=== PATIENT | female | born 2000 | race Caucasian/White ===

== ENCOUNTER 2024-01-17 22:54 | Emergency (ER) | payer BC, SELFPAY ==
--- NOTE | ~2024-01-17 | CT_ITS ---
EXAMINATION: CT brain wo con DATE: 01/18/2024 03:35 INDICATION: Descending weakness. TECHNIQUE: Computed tomography (CT) of the head was performed without intravenous contrast. The mA wa s adjusted according to patient size. Iterative reconstruction technique was employed. The dose-lengt h product was 605.33 mGy-cm. COMPARISON: None FINDINGS: There is no intracranial hemorrhage, acute infarction, or abnormal intracranial mass lesion . The ventricles are normal in size. Cavum septum pellucidum and vergae are noted. The paranasal sinu ses are clear. The mastoid air cells are normal. IMPRESSION: 1. Normal brain. Reviewed, dictated and finalized at location A. IMPRESSION: 1. Normal brain.
--- NOTE | ~2024-01-17 | CT_ITS ---
EXAMINATION: CT cervical spine wo con DATE: 01/18/2024 03:35 INDICATION: Neck laxity. Descending weakness. TECHNIQUE: Computed tomography (CT) of the cervical spine was performed without intravenous contrast. Automated exposure control and iterative reconstruction technique were employed. The dose-length pro duct was 107.57 mGy-cm. COMPARISON: None FINDINGS: There is kyphosis of cervical spine. Vertebral body heights are normal. Intervertebral disc heights are normal. At C7-T1, there is moderate bilateral facet joint osteoarthritis. No neural fora keshia stenosis. There is mild central canal stenosis at C5-C6 and C6-C7. IMPRESSION: 1. Mild cervical spondylosis. Reviewed, dictated and finalized at location A.
[2024-01-17 22:55] VITALS: BP 136/98; PULSE 115; RESP 18; TEMP 36.6; O2SAT 100
[2024-01-18] VITALS (23 sets, daily range): BP systolic 105–122; BP diastolic 66–88; PULSE 62–92; RESP 17–20; O2SAT 95–100
--- NOTE | 2024-01-18 03:10 | ED.GENADULT ---
HPI - General Adult General Chief complaint: Unspecified Stated complaint: weakness Time Seen by Provider: 01/18/24 02:44 History of Present Illness HPI narrative: 23-year-old otherwise healthy female presenting to the emergency room with a chief complaint of instability or neck, spasm in her neck and blurry vision. Patient states that she receive a flu shot earlier today at [employer] and thinks that this could be reaction to that. About a week ago she was having a viral illness with some abdominal pain, loose stools and subjective fevers but this was self-limited. 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 Presently she is endorsing difficulty keeping her head level and cannot raise it above her neck without causing significant instability. Denies any trauma, headache, nausea, vomiting, chest pain, shortness a breath. No abdominal pain, no diarrhea constipation or urinary complaints. Has never had anything like this happen to in the past. Related Data Allergies Allergy/AdvReac Type Severity Reaction Status Date / Time No Known Allergies Allergy Verified 12/18/23 15:24 Review of Systems Review of Systems: As reviewed above in HPI [facility] Past Medical History Medical History Anxiety Depression Family History Family History Mother Depression Sibling Asthma Grandparent Breast cancer Grandparent Cerebrovascular accident Social History Social History Smoking status: Never smoker Exam Narrative: GENERAL: [Well-appearing, well-nourished, and in no acute distress.] HEAD: [Normocephalic, atraumatic.] Patient has bobbing head motions when trying to sit upright. She is not able to keep her head steady. No cervical spinal tenderness or deformity. No step-offs. No lymphadenopathy EYES: Bilateral ptosis, pupils are equal reactive to light, extraocular movements are full. No nystagmus. ENT: Nares clear, no rhinorrhea or epistaxis. Mucous membranes moist. NECK: Supple. CHEST: [Clear to auscultation. No respiratory distress.] HEART: [Regular rate and rhythm]. No murmur heard. [Normal peripheral pulses.] ABDOMEN: [Soft, nondistended], [nontender], [No rigidity or guarding] EXTREMITIES: Normal range of motion. [No edema.] SKIN: Warm, dry, no rash. NEURO: [No focal deficits]. Alert and oriented [x3.] Normal strength and sensation throughout both arms and legs. No facial paresthesias or sensation loss. Proximal neck muscle and eyelid weakness with visible ptosis and difficulty keeping her head straight up. Ataxia is noted in the bilateral upper extremities with [id number] in the lateral mir but absence when brought closer to field of vision. PSYCH: [Normal mood and affect.] Course Vital Signs Vital signs: Vital Signs Temperature 36.6 C 01/17/24 22:55 Pulse Rate 115 H 01/17/24 22:55 Respiratory Rate 18 01/17/24 22:55 Blood Pressure 136/98 H 01/17/24 22:55 Pulse Oximetry 100 01/17/24 22:55 Oxygen Delivery Room Air 01/17/24 22:55 Temperature 36.6 C 01/17/24 22:55 Pulse Rate 76 01/18/24 06:25 Respiratory Rate 20 01/18/24 06:25 Blood Pressure 106/74 01/18/24 06:25 Pulse Oximetry 100 01/18/24 06:25 Oxygen Delivery Room Air 01/17/24 22:55 Procedures Lumbar Puncture Lumbar Puncture #1: Lumbar Puncture Date: 01/18/24 Lumbar Puncture Time: 06:00 Time Out Performed: Yes Patient Position: right lateral decubitus Skin Prep: Povidone-Iodine 1% and Other Anesthetic: lidocaine 1% Amount of anesthesia used (mL): 5 Spinal Needle Gauge: 20G Interspace Used: L3-L4 Opening Pressure (cmH20): 19 Spinal Fluid: fluid obtained and atraumatic Fluid Initially Obtained: clear Closing Pressure:
--- NOTE | 2024-01-18 03:21 | PC.NURSE ---
Patient taken to CT via stretcher at this time.
--- NOTE | 2024-01-18 03:51 | PC.NURSE ---
This RN attempted to get IV line and blood work, patient stuck 2 times, unsuccessful. Will have another RN attempt.
[2024-01-18 03:56] LABS: Influenza A QL RT-PCR Negative (Negative); Influenza B QL RT-PCR Negative (Negative); RSV RNA, RT-PCR Negative (Negative); SARS-CoV-2 RNA PCR Negative (Negative)
[2024-01-18] MEDS: diazePAM INJ (*CRX) 10 MG/2 ML SYRINGE 2.5 MG IV PUSH (04:01)
[2024-01-18] MEDS: LACTATED RINGERS 1,000 ML 999 ML IV CONT (04:03)
[2024-01-18 04:15] LABS: Basophils Percent Auto 0.6 % (0.2-1.2); Eosinophils Absolute Auto 0.1 K/mm3 (0-0.3); Eosinophils Percent Auto 1.3 % (0-4.4); Hematocrit 38.6 % (37.0-47.0); Hemoglobin 13.1 g/dL (12.0-15.0); Immature Granulocyte Absolute 0.01 K/mm3 (0.00-0.031); Immature Granulocyte Percent A 0.1 % (0-0.5); Lymphocytes Absolute Auto 1.83 K/mm3 (0.9-3.2); Lymphocytes Percent Auto 25.8 % (18.3-44.2); Mean Corpuscular HGB Conc 33.9 g/dl (32-36); Mean Corpuscular Hemoglobin 30.7 pg (26-34); Mean Corpuscular Volume 90.4 fl (80-100); Mean Platelet Volume 9.7 fl (7.4-10.4); Monocytes Absolute Auto 0.5 K/mm3 (0.1-0.6); Neutrophils Absolute Auto 4.6 K/mm3 (1.3-6.7); Neutrophils Percent Auto 65.2 % (45.5-73.1); Platelet Count Result 175 k/mm3 (150-375); Red Blood Count 4.27 M/mm3 (4.2-5.4); Red Cell Distribution Width 12.3 % (11.5-14.5); White Blood Count 7.1 K/mm3 (4.5-10.0)
[2024-01-18 04:19] LABS: Creatine Kinase 50 U/L (30-135)
[2024-01-18 04:23] LABS: Anion Gap 10 mmol/L (4-12); Blood Urea Nitrogen 18 mg/dL (7-17); CRP < 0.5 mg/dL (<1.0); Calcium 9.4 mg/dL (8.4-10.2); Carbon Dioxide 24 mmol/L (22-30); Chloride 105 mmol/L (98-107); Estimated CRCL calculation 88 ml/min; Estimated Glomerular Filt Rate > 60; Glucose 91 mg/dL (65-110); Magnesium 2.2 mg/dL (1.6-2.3); Potassium 3.7 mmol/L (3.4-5.0); Sodium 139 mmol/L (137-145)
[2024-01-18 04:56] LABS: Erythrocyte Sedimentation Rate 12 mm/hr (0-20)
[2024-01-18] MEDS: fentaNYL CITRATE INJ (*CRX) 100 MCG/2 ML VIAL 25 MCG IV PUSH (05:56)
[2024-01-18] MEDS: MIDAZOLAM HCL (*CRX) 2 MG/2 ML VIAL 0.5 MG IV PUSH (05:56)
--- NOTE | 2024-01-18 06:20 | PC.NURSE ---
ERP performed LP, placed patient on 2L via NC for comfort. Patient tolerated procedure well.
--- NOTE | 2024-01-18 06:20 | PC.NURSE ---
Called to add on TSH reflex, spoke to Althea in lab.
[2024-01-18 06:27] LABS: BEDSIDEPREGUCG Negative (Negative)
[2024-01-18 06:47] LABS: Glucose CSF 48 mg/dL (40-70); Total Protein CSF 28 mg/dL (12-60)
[2024-01-18 06:56] LABS: Appearance CSF Clear (Clear); CSF source CSF; Color CSF Colorless (Colorless); Nucleated Cell CSF 1 /uL (0-5)
[2024-01-18 06:57] LABS: Lymphocytes CSF 8 % (40-80); Red Blood Cell CSF 0 (0-2)
[2024-01-18 08:20] LABS: Total Triiodothyronine (T3) 1.24 NG/ML (0.97-1.69)
[2024-01-18 09:20] LABS: Add Urine Microscopic? YES; Appearance Urine Cloudy (Clear); Bacteria Urine Rare /hpf; Bilirubin Urine Negative (Negative); Blood Urine 3+ (Negative); Color Urine Yellow (Yellow); Glucose Urine UA Negative (Negative); Ketones Urine Negative (Negative); Leukocyte Esterase Ur 2+ LEU/UL (Negative); Nitrate Urine Negative (Negative); Non Pathogenic Casts 0-2; Protein Urine Negative (Negative); RBC Urine 0-2 /hpf (0-2); Specific Grav Ur 1.008 (1.001-1.035); Squamous Epithelial Cell Urine Few /hpf (Few); Urobilinogen Urine 0.2 mg/dL (<2.0)
--- NOTE | 2024-01-18 10:06 | PCRCNOTE ---
Pt did a bedside NIF and got -57. Results verbally given to Dr. Perez.
[2024-01-18] MEDS: CYCLOBENZAPRINE HCL 10 MG TABLET PO (13:02)
[2024-01-18] MEDS: IBUPROFEN 400 MG TABLET 800 MG PO (14:58)
--- NOTE | 2024-01-18 16:18 | PC.NURSE ---
Pt provided hospital bed for comfort, dinner tray ordered.
--- NOTE | 2024-01-18 18:28 | PC.NURSE ---
talked to Marlene with [facility] transfer center. still no bed assign at this time
--- NOTE | 2024-01-18 19:00 | PC.NURSE ---
This RN received report from ЕКАТЕРИНА Molina. Pt curently sleeping at this time with no request. Family at bedside.
[2024-01-19] VITALS (37 sets, daily range): BP systolic 76–118; BP diastolic 63–97; PULSE 77–106; RESP 13–18; TEMP 36.6; O2SAT 94–100
--- NOTE | 2024-01-19 01:00 | PC.NURSE ---
Pt called out for her Zoloft medication at this time. Dr. Jewell notified.
[2024-01-19] MEDS: SERTRALINE HCL 25 MG TABLET 125 MG PO ×2 (01:14→22:47)
--- NOTE | 2024-01-19 01:15 | PC.NURSE ---
This RN gave pt her Zoloft medication. While in the room, pt and mother asked for an update from Dr. Jewell. Still waiting for bed assignment at this time and Dr. Jewell notified of request.
--- NOTE | 2024-01-19 03:00 | PC.NURSE ---
Report received from ЕКАТЕРИНА Castano. Pt resting quietly per cart in nad at this time. Continues to await bed assignment at [facility]. No needs voiced at this time. Family at bedside.
--- NOTE | 2024-01-19 06:00 | PC.NURSE ---
Report passed to ЕКАТЕРИНА Bernard. Pt resting quietly in hospital bed in [facility].
--- NOTE | 2024-01-19 06:25 | PC.NURSE ---
Discussed with Dr Fanta trevizo. Pending orders.
--- NOTE | 2024-01-19 11:21 | PC.NURSE ---
Bedside report given to Janae WILLAMS, all questions answered
--- NOTE | 2024-01-19 19:15 | PC.NURSE ---
Tech at bedside changing pt's linens. Pt ambulatory to restroom with mother's assistance. Back from restroom with mother and tech d/t walking difficulties, but did not want to use wheelchair.
[2024-01-19] MEDS: CYCLOBENZAPRINE HCL 10 MG TABLET PO (19:19)
--- NOTE | 2024-01-19 23:20 | PC.NURSE ---
This Rn received report from Janae. Pt states having no questions or requests at this time. Pt is still waiting on a bed at [place]. Pt is sleeping and has family at bedside.
[2024-01-20 04:50] VITALS: BP 111/74; PULSE 83; RESP 18; O2SAT 100
--- NOTE | 2024-01-20 07:18 | PC.NURSE ---
This RN spoke with Eduarda WILLAMS from [facility] and gave report around 0430 this morning. All questions were answered at this time.
--- NOTE | 2024-01-20 07:25 | P.PNED_ITS ---
Subjective Date/time seen: 01/20/24 07:25 Interval history: Patient has been boarded here for over 2 days. Decision was made to try and transfer to another facility. She is currently on the wait list for a bed at [facility]. I called the [facility] transfer center and patient was accepted to [facility] under the hospitalist Dr. Wilson. I discussed the case with Dr. Wilson over the phone informed them of patient's presentations, imaging studies, workup here in the emergency department. Patient was agreeable to transfer that time and EMS ambulance was arranged with BLS transport. Transportation will be set for this morning and she will be accepted and has a bed assigned on a neuro tele bed. Patient has been hemodynamically stable throughout her stay here in the emergency department. Neuro doll she has improved and less truncal ataxia and neuromuscular weakness in her neck but is still having difficulty ambulating. Transfer still appropriate this time for higher level of care and neurological evaluation. Objective Data Vital Signs Vital Signs: Vital Signs - 24 hr 01/19/24 08:00 01/19/24 08:00 01/19/24 09:56 Temperature Pulse Rate 85 104 H Respiratory Rate 15 15 15 Blood Pressure 110/84 110/84 Pulse Oximetry 99 98 01/19/24 10:24 01/19/24 13:36 01/19/24 16:00 Temperature Pulse Rate 106 H 91 96 Respiratory Rate 13 Blood Pressure 101/80 101/71 107/80 Pulse Oximetry 98 99 99 01/19/24 19:19 01/19/24 22:00 01/20/24 04:50 Temperature 36.6 C Pulse Rate 94 94 83 Respiratory Rate 18 Blood Pressure 113/70 107/70 111/74 Pulse Oximetry 100 100 100 Intake/Output Intake/Output: Intake & Output 01/17/24 01/18/24 01/19/24 01/20/24 23:59 23:59 23:59 23:59 Intake Total 1000 Balance 1000 Meds/Results Radiology Results: ITS Impressions Head CT 01/18/24 06:47 IMPRESSION: 1. Normal brain. Cervical Spine CT 01/18/24 06:54 IMPRESSION: 1. Mild cervical spondylosis.
[2024-01-21 16:47] LABS: HIV 1 RNA PCR NOT DETECTED (NOT DETECTED); HIV 1 RNA PCR NOT DETECTED copies/mL (NOT DETECTED)
[2024-01-22 20:49] LABS: Varicella IgM Antibody 0.39
[2024-01-24 08:36] LABS: Source CSF
[2024-01-24 16:13] LABS: Epstein Barr Virus DNA PCR NOT DETECTED; Source Epstein Barr Virus CEREBROSPINAL FLUID
[2024-01-24 19:29] LABS: Lyme AB IgG, Immunoblot NO BANDS DETECTED; Lyme AB IgM, Immunoblot NO BANDS DETECTED
[2024-01-24 23:34] LABS: Herpes Simplex Type 1 DNA PCR NOT DETECTED; Herpes Simplex Type 2 DNA PCR NOT DETECTED
[2024-01-25 00:54] LABS: VDRL Quantitative CSF NON-REACTIVE
[2024-01-25 16:19] LABS: Source CEREBROSPINAL FLUID
[2024-01-27 07:43] LABS: IgG Index, CSF 0.54; Immunoglobulin G, Serum 861
[2024-01-27 07:44] LABS: Albumin, CSF 9.7
[2024-01-27 07:47] LABS: Synthesis Rate IgG, CSF -2.6
[2024-01-29 00:18] LABS: Albumin, Serum 4.5 g/dL (3.6-5.1); Myelin Basic Protein, CSF <2.0 mcg/L (< OR = 4.0); Oligoclonal Bands (IgG), CSF ABSENT (ABSENT)
== END 2024-01-20 07:49 | disposition short-term general hospital (02) ==
PROVIDERS: Emergency Provider Student in an Organized Health Care Education/Training Program; PCP Family Medicine
DX: M62.81 Muscle weakness (generalized) (principal); H02.409 Unspecified ptosis of unspecified eyelid; H53.8 Other visual disturbances; F41.8 Other specified anxiety disorders; Z20.822 Contact with and (suspected) exposure to COVID-19
CPT/HCPCS: 36415; 62270; 70450; 72125; 80048; 81001; 81025; 82040; 82042; 82550; 82784; 82945; 83605; 83735; 83873; 83916; 84157; 84439; 84443; 84480; 85025; 85652; 86140; 86592; 86617; 86787; 87070; 87086; 87181; 87255; 87529; 87536; 87637; 87798; 89051; 96361; 96374; 96375; 99285; A9270; J2250; J3010; J3360; J7120